=== PATIENT | female | born 1985 | race Caucasian/White ===

== ENCOUNTER → 2017-04-15 21:59 | Observation (INO) ==
[2017-04-15 21:20] LABS: Bilirubin,Urine Negative (Negative); Blood,Urine Negative (Negative); Clarity,Urine Cloudy (Clear); Color,Urine Yellow (Yellow); Glucose,Urine (UA) Normal (Normal); Ketones,Urine Negative (Negative); Leukocyte Esterase,Urine Negative (Negative); Nitrite,Urine Negative (Negative); Protein,Urine Trace mg/dL (Neg-Trace); Specific Gravity,Urine 1.028 (1.010-1.025); Urobilinogen,Urine Normal (Normal)
[2017-04-15 21:22] LABS: Hyaline Casts,Urine None Seen per lpf (None-Few); Squamous Epithelial Cell,Urine Many per lpf (None-Few)
[2017-04-15 21:31] LABS: Amorphous Sediment,Urine Few (Few); Bacteria,Urine Moderate per hpf (None-Few); Mucus,Urine Moderate (Few)
--- NOTE | 2017-04-15 21:50 | OB/GYN Progress Note ---
Date of Encounter: 04/15/17 Time of Encounter: 21:47 - Assessment and Plan (1) 30 weeks gestation of Current Visit: Yes Status: Acute (2) Encounter for suspected PROM, with rupture of membranes not found Current Visit: Yes Status: Acute Fern and Nitrazine negative. Vaginosis panel obtained. (3) Decreased movement Current Visit: Yes Status: Acute Pt did feel move while in triage. heart rate tracing appropriate for gestational age. Qualifiers: Fetus number: single or unspecified fetus Trimester: third trimester Qualified Code(s): O36.8130 - Decreased movements, third trimester, not applicable or unspecified (4) Pelvic pressure in Current Visit: Yes Status: Acute Cervix closed, thick and high. Discussed need for rest and hydration. discharged home with labor precautions. Pt verbalized understanding. Subjective - Subjective Interval history: 30+5 weeks gestation presents to triage with complaints of decreased movement, cramping and pelvic pressure, and occasional leaking of fluid. Patient states the cramping has been going on for a couple days is inconsistent and not in a regular pattern. Patient states she occasionally has decreased movement she does not feel the baby when lying so she usually checks movement after having a meal sitting in a recliner. Patient states on last check she did not get the required 8-10 movement. Denies vaginal bleeding. Patient also complains of pelvic pressure and pains that wraparound her hips down into vagina. Patient states leaking of fluid has been intermittent the last few days Antepartum ROS: loss of fluid, contractions, no vaginal bleeding, no movement normal Objective - Vital Signs Vital Signs: Intake and Output 04/15/17 04/15/17 04/15/17 07:59 15:59 23:59 Other: Weight 154.2 kg Patient Weight 04/15/17 23:59 Weight 154.2 kg - Exam FHR: auscultation normal FHR comments: Baseline: 135 Auscultation: bilateral: normal Abdomen: Present: normal appearance, soft, gravid Uterus: Present: normal Cervical dilation: Closed, thick, long - Labs Labs: Abnormal lab results Urine Clarity Cloudy (Clear) A 04/15/17 21:15 Ur Specific [place] 1.028 (1.010-1.025) H 04/15/17 21:15 Urine Microscopic WBC 3-5 per hpf (0-3) H 04/15/17 21:15 Ur Squamous Epith Cells Many per lpf (None-Few) H 04/15/17 21:15 Urine Bacteria Moderate per hpf (None-Few) H 04/15/17 21:15 Urine Mucus Moderate (Few) H 04/15/17 21:15
[2017-04-15 21:51] LABS: Amphetamine Screen,Urine Negative ng/mL (Cutoff=1000); Barbiturate Screen,Urine Negative ng/mL (Cutoff=200); Benzodiazepines Screen,Urine Negative ng/mL (Cutoff=200); Cannabinoid Screen,Urine Negative ng/mL (Cutoff = 50); Cocaine Screen,Urine Negative ng/mL (Cutoff= 300); Opiate Screen,Urine Negative ng/mL (Cutoff=300); Phencyclidine Screen,Urine Negative ng/mL (Cutoff=25)
[2017-04-15 22:35] LABS: Candida DNA Not Detected (Not Detect); Gardnerella DNA ***DETECTED*** (Not Detect); Trichomonas DNA Not Detected (Not Detect)
== END | disposition home or self-care (01) ==
LOC: 1NENULAB
PROVIDERS: ADMIT Advanced Practice Midwife; ATTEND Advanced Practice Midwife

== ENCOUNTER → 2017-04-28 13:10 | Observation (INO) ==
[2017-04-28 12:14] LABS: Basophils # 0.1 K/mcL (0.0-0.2); Basophils % 0.4 %; Eosinophils # 0.1 K/mcL (0.0-0.6); Immature Granulocytes % 2.3 % (0-4); Immature Platelets 5.3 % (1.1-6.1); Lymphocytes # 1.5 K/mcL (0.6-4.6); Lymphocytes % 10.8 %; Mean Corpuscular HGB Conc 32.3 g/dL (31.6-35.5); Mean Corpuscular Hemoglobin 26.8 pg (28.0-33.3); Mean Corpuscular Volume 83.1 fL (83.0-100.0); Mean Platelet Volume 10.3 fL (9.4-12.4); Monocytes # 0.7 K/mcL (0.0-1.3); Monocytes % 4.7 %; Neutrophils # 11.2 K/mcL (1.6-8.9); Platelet Count 252 K/mcL (140-400); Red Blood Count 3.73 M/mcL (3.82-4.97); Red Cell Distribution Width 14.8 % (11.5-14.5); Segmented Neutrophils % 80.8 %
[2017-04-28 12:24] LABS: Protein/Creatinine Ratio,Urine 0.19 mg/mg (0-0.20)
[2017-04-28 12:28] LABS: Alanine Aminotransferase 10 Units/L (0-55); Aspartate Amino Transferase 8 Units/L (5-34); BUN/Creatinine Ratio 17 (6-26); Blood Urea Nitrogen 10 mg/dL (7-20); Lactate Dehydrogenase 146 Units/L (159-327); Uric Acid 4.5 mg/dL (2.6-6.0); eGFR For African Americans > 60 (> 60); eGFR For Non-African Americans > 60 (> 60)
--- NOTE | 2017-04-28 12:44 | Discharge Summary ---
Date of Encounter: 04/28/17 Time of Encounter: 12:44 - Discharge Diagnosis (1) 34 weeks gestation of Priority: Primary Status: Acute Comments: admitted for PIH evaluation (2) Elevated BP without diagnosis of hypertension Priority: Secondary Status: Acute Comments: BP's within normal limits PIH labs WNL Discussed Pt with Dr. Castañeda Discharge home follow up with DR. Guerra as scheduled on . (3) NST (non-stress test) reactive on surveillance Priority: Secondary Status: Acute Comments: FHR baseline 150 bpm moderate variability +15x15 accels no decels noted. No contractions noted. - Discharge Medications Home Medications: Vit/Iron Fumarate/FA [ Tablet] 1 each PO DAILY 04/15/17 [ History] Allergies/Adverse Reactions: 3 Allergy/AdvReac Type Severity Reaction Status Date / Time No Known Allergies Allergy Unverified 04/15/17 21:08 Data Procedures and tests throughout hospitalization: Laboratory Tests 04/28/17 04/28/17 04/28/17 12:03 12:03 12:03 WBC 13.9 H RBC 3.73 L Hgb 10.0 L Hct 31.0 L MCV 83.1 MCH 26.8 L MCHC 32.3 RDW 14.8 H Plt Count 252 MPV 10.3 Immature Gran % 2.3 Seg Neutrophils % 80.8 Lymphocytes % 10.8 Monocytes % 4.7 Eosinophils % 1.0 Basophils % 0.4 Neutrophils # 11.2 H Lymphocytes # 1.5 Monocytes # 0.7 Eosinophils # 0.1 Basophils # 0.1 Immature Plt Fraction 5.3 BUN 10 Creatinine 0.59 Est GFR ( Amer) > 60 Est GFR (Non-Af Amer) > 60 BUN/Creatinine Ratio 17 Uric Acid 4.5 AST 8 ALT 10 Lactate Dehydrogenase 146 L Urine Creatinine 43 Protein/Creatinin Ratio 0.19 Urine Total Protein 8 Labs on day of discharge: Labs from last 24 hours 04/28/17 04/28/17 04/28/17 12:03 12:03 12:03 WBC 13.9 H RBC 3.73 L Hgb 10.0 L Hct 31.0 L MCV 83.1 MCH 26.8 L MCHC 32.3 RDW 14.8 H Plt Count 252 MPV 10.3 Immature Gran % 2.3 Seg Neutrophils % 80.8 Lymphocytes % 10.8 Monocytes % 4.7 Eosinophils % 1.0 Basophils % 0.4 Neutrophils # 11.2 H Lymphocytes # 1.5 Monocytes # 0.7 Eosinophils # 0.1 Basophils # 0.1 Immature Plt Fraction 5.3 BUN 10 Creatinine 0.59 Est GFR ( Amer) > 60 Est GFR (Non-Af Amer) > 60 BUN/Creatinine Ratio 17 Uric Acid 4.5 AST 8 ALT 10 Lactate Dehydrogenase 146 L Urine Creatinine 43 Protein/Creatinin Ratio 0.19 Urine Total Protein 8 Date of admission: 04/28/17 11:42 Primary care physician: PCP NONE Discharging clinician: Karen Mason Anticipated date of discharge: 04/28/17 - Patient Status Disposition: Home, Self-Care Condition: Good Functional capacity at discharge: independent ambulation - Discharge Instructions Follow Up With: NONE,PCP [Primary Care Provider] - Micheal Guerra MD [Partnered Physician] - - Diet and Activity Activity: increase activity as tolerated Diet: regular diet 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 Patient denies visual disturbances or epigastric pain. Patient has not taken anything to relieve headache. Patient reports +FM, denies contractions, LOF or VB. Time Attestation: Total time spent providing and/or coordinating discharge services: Time Spent: Less than 30 minutes Exam - Constitutional General appearance IM: A&O X 3, morbidly obese, pleasant, answers questions appropriately - Respiratory Respiratory exam: Present: CTAB - Cardiovascular Cardiovascular exam IM: Present: RRR, +S1, +S2 - Other Additional findings: FHR 150 bpm moderate variability +15x15 accels no decels noted. CAt. 1 tracing. No contractions noted. - VTE Reasons for not Prescribing Prophylaxis: Treatment not Indicated - Low risk for VTE
[2017-04-28 12:49] LABS: Amphetamine Screen,Urine Negative ng/mL (Cutoff=1000); Barbiturate Screen,Urine Negative ng/mL (Cutoff=200); Benzodiazepines Screen,Urine Negative ng/mL (Cutoff=200); Cannabinoid Screen,Urine Negative ng/mL (Cutoff = 50); Cocaine Screen,Urine Negative ng/mL (Cutoff= 300); Opiate Screen,Urine Negative ng/mL (Cutoff=300); Phencyclidine Screen,Urine Negative ng/mL (Cutoff=25)
== END | disposition home or self-care (01) ==
LOC: 1NENULAB
PROVIDERS: ADMIT Obstetrics & Gynecology; ATTEND Obstetrics & Gynecology

== ENCOUNTER 2017-06-12 05:31 | Inpatient (IN) ==
[2017-06-12] MEDS ORDERED: Naloxone 0.4 MG/ML INJ IVP PRN ×2 (06:11→08:39)
[2017-06-12] MEDS ORDERED: Metoclopramide 10 MG/2 ML VIAL IVP PRN ×2 (06:11→11:20)
[2017-06-12] MEDS ORDERED: Famotidine 20 MG/2 ML VIAL IVP PRN (06:11)
[2017-06-12] MEDS ORDERED: Ringers Solution, Lactated 1,000 ML IVC SCH (06:15)
[2017-06-12] MEDS ORDERED: Ringers Solution, Lactated 1,000 ML ONE ×2 (06:16→08:58)
[2017-06-12] MEDS ORDERED: ceFAZolin 3,000 MG in D5% in Water 100 ML IVPB ONE (06:25)
[2017-06-12 06:27] LABS: Hematocrit 31.1 % (35.3-44.9); Hemoglobin 10.2 g/dL (11.5-15.4); Immature Granulocytes % 1.6 % (0-4); Lymphocytes % 13.1 %; Mean Corpuscular HGB Conc 32.8 g/dL (31.6-35.5); Mean Corpuscular Hemoglobin 27.3 pg (28.0-33.3); Mean Corpuscular Volume 83.4 fL (83.0-100.0); Mean Platelet Volume 10.7 fL (9.4-12.4); Platelet Count 221 K/mcL (140-400); Red Blood Count 3.73 M/mcL (3.82-4.97); Red Cell Distribution Width 15.8 % (11.5-14.5); Segmented Neutrophils % 78.8 %
[2017-06-12 06:28] LABS: Basophils % 0.3 %; Eosinophils # 0.2 K/mcL (0.0-0.6); Eosinophils % 1.1 %; Lymphocytes # 1.8 K/mcL (0.6-4.6); Monocytes # 0.7 K/mcL (0.0-1.3); Monocytes % 5.1 %; Neutrophils # 10.6 K/mcL (1.6-8.9)
[2017-06-12 06:41] LABS: Amphetamine Screen,Urine Negative ng/mL (Cutoff=1000); Barbiturate Screen,Urine Negative ng/mL (Cutoff=200); Benzodiazepines Screen,Urine Negative ng/mL (Cutoff=200); Cannabinoid Screen,Urine Negative ng/mL (Cutoff = 50); Cocaine Screen,Urine Negative ng/mL (Cutoff= 300); Opiate Screen,Urine Negative ng/mL (Cutoff=300); Phencyclidine Screen,Urine Negative ng/mL (Cutoff=25)
--- NOTE | 2017-06-12 06:50 | OB/GYN History & Physical ---
Date of Encounter: 06/12/17 Time of Encounter: 06:50 Assessment and Plan (1) 39 weeks gestation of Current visit: Yes Status: Acute Admit to labor and delivery Prepare for section GBS negative History of Present Illness Chief complaint: Admission for C/S HPI: Ms. Blackwell is a 32 year old female 39 and 0 weeks gestation, presents for primary section for LGA . course complicated with maternal obesity, elevated 1 hour GTT, 3 hour GTT within normal limits, otherwise uncomplicated. Patient reports good movement, denies contractions, vaginal bleeding, or leaking of fluid. Labs: A+, rubella and varicella immune, GBS negative, all other serologies negative Past Med Surg Social Fam HX - Past Medical History Medical history: no medical history Psychiatric history: no psych history - Past Surgical History Surgical History: other - Social History Smoking Status: Never smoker Smokeless Tobacco Status: No Alcohol use: none Drug use: none - Family History Mother Living Status: Still Living Hx Family Endocrine Disorder: Yes (DM) Obstetrical History - Pregnancies : 1 Para: 0 Term: 0 : 0 Ab's: 0 Livin Medications and Allergies Vit/Iron Fumarate/FA [ Tablet] 1 each PO DAILY 04/15/17 [ History] Ferrous Sulfate [Iron] 325 mg PO BID 04/28/17 [History] 3 Allergy/AdvReac Type Severity Reaction Status Date / Time No Known Allergies Allergy Verified 06/12/17 06:27 Exam - Constitutional Constitutional: well developed, well nourished, no acute distress, morbidly obese - Neck Neck exam: full ROM - Lungs Respiratory exam: CTAB - Cardiovascular Cardiovascular exam: RRR - Abdomen Abdomen: Present: bowel sounds normal, gravid, non tender - Uterus Uterus exam: Present: normal size, normal contour Results Result Diagrams: 06/12/17 06:15 Abnormal lab results WBC 13.4 K/mcL (4.3-11.1) H 06/12/17 06:15 RBC 3.73 M/mcL (3.82-4.97) L 06/12/17 06:15 Hgb 10.2 g/dL (11.5-15.4) L 06/12/17 06:15 Hct 31.1 % (35.3-44.9) L 06/12/17 06:15 MCH 27.3 pg (28.0-33.3) L 06/12/17 06:15 RDW 15.8 % (11.5-14.5) H 06/12/17 06:15 Neutrophils # 10.6 K/mcL (1.6-8.9) H 06/12/17 06:15 All other labs normal. - VTE Reasons for not Prescribing Prophylaxis: Treatment not Indicated - Low risk for VTE
[2017-06-12] MEDS ORDERED: CeFAZolin Syr 3,000MG/30 ML 3,000 MG/30 ML SYRINGE IVPB ONE (07:00)
[2017-06-12] MEDS ORDERED: *HR* Morphine Sulfate/PF 5 MG/10 ML AMPUL ONE (07:28)
[2017-06-12] MEDS ORDERED: *HR* FentaNYL (PF) 100 MCG/2 ML VIAL ONE (07:29)
[2017-06-12] MEDS ORDERED: Acetaminophen IV 1,000 MG/100 ML INFUS..BTL IVPB ONE (07:31)
--- NOTE | 2017-06-12 07:35 | Anesthesia Evaluation PreOp ---
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 HX Other Medical History: Denies Any Significant HX Anesthesia History: No Prior Anesthetic Complications, Past Anesthesia ( Varicose Veins, IUD removal in OR) : Yes Alcohol Use: none Drug use: none Medications and Allergies Vit/Iron Fumarate/FA [ Tablet] 1 each PO DAILY 04/15/17 [ History] Ferrous Sulfate [Iron] 325 mg PO BID 04/28/17 [History] 3 Allergy/AdvReac Type Severity Reaction Status Date / Time No Known Allergies Allergy Verified 06/12/17 06:27 - Meds/Allergy Pre-op Review Medications Reviewed: Yes Allergies Reviewed: Yes Beta Blockers on Current Med List: No Anesthesia Results - Labs 06/12/17 06:15 Anesthesia Exam 138/78, 20, 98% Height: 1.7m Weight: 161.9kg NPO (# of Hours): >8hr Pain Scale: 0 Pain Scale Used: Numeric (1 - 10) - HEENT Pupil (Motor): Pupils equal Mallampati: III Teeth: Normal Oral Opening: Greater than 3 - 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
[2017-06-12] MEDS ORDERED: *HR* Oxytocin 10 UNIT/ML VIAL IM ONE ×2 (07:36→08:58)
[2017-06-12] MEDS ORDERED: Ondansetron 4 MG/2 ML VIAL ONE (07:38)
[2017-06-12] MEDS ORDERED: Ringers Solution, Lactated 2,000 ML ONE (08:08)
[2017-06-12] MEDS ORDERED: Ketamine *HR* 500 MG/10 ML MDV ONE (08:21)
[2017-06-12] MEDS ORDERED: Ondansetron 4 MG/2 ML VIAL IVP PRN ×2 (08:39→11:20)
[2017-06-12] MEDS ORDERED: *HR* HYDROmorphone (PF) 1 MG/ML SYRINGE IVP PRN ×2 (08:39→12:54)
--- NOTE | 2017-06-12 09:26 | OB/GYN Procedure Note ---
Section - Date of procedure: 06/12/17 Preop diagnosis: other (Macrosomia declines trial of labor) Post-op diagnosis: same Procedure: primary low transverse Surgeon: Micheal Guerra Estimated blood loss (cc): 800 Anesthesiologist: Sheri Reddy Assistant In Nursing: Shawn Carlos Anesthesia Type: Spinal section complications: none Disposition: PACU Specimens: Placenta - Infant (s) Infant A Infant Delivery Date: 06/12/17 Infant Delivery Time: 08:33 Presentation: vertex Gender: Female Pounds: 8 Ounces: 12 Gram Weight: 3.97 kg at 1 minute: 9 at 5 minutes: 9 Shoulder Dystocia: not encountered Specimens collected: cord blood Placenta: complete extraction Cord: nuchal cord - Narrative Narrative: Patient was taken to the operating room. After satisfactory anesthesia was achieved, patient placed in supine position Robb catheter inserted and prepped and draped in usual manner. After appropriate timeout, the abdomen was entered standard Maylard incision. The Rivas retractor was placed. The peritoneum overlying the lower uterine segment was incised in U-shaped fashion. Uterine cavity was entered sharply and extended laterally. Fluid was clear. With fundal pressure the head was delivered. Infant suctioned upon delivery of the head. Nuchal cord 2 was relieved. The was delivered and the umbilical cord double clamped cut and the infant was handed to nurse staff further evaluation the placenta was removed. Uterus closed in single layer using 0 Monocryl. After hemostasis, the abdomen was closed in a fashion using 0 Vicryl to fascia, 2-0 Vicryl in the subcutaneous, and 3-0 Monocryl on the skin. Sterile dressing was applied. Patient did well and was taken to recovery room in satisfactory condition. Counts were correct.
--- NOTE | 2017-06-12 10:57 | Anesthesia Evaluation Post Op ---
Date of Encounter: 06/12/17 Time of Encounter: 10:50 - Lungs Lungs: Clear Ascult./Percussion - Airway Airway: Non-obstructed - Cardiovascular Regular Rate - Mental Status Mental Status: Alert & Oriented, Answers Appropriately - Pain Pain Scale: 5 Pain Scale used: Numeric (1 - 10) - Nausea Vomiting Nausea Vomiting: Not Present - Hydration Hydration: NPO, Robb catheter - Discharge PostOp Status: Transfer Patient to floor Attestation: MOEx4. Patient alert and communicative. Meets criteria for floor transfer.
[2017-06-12] MEDS ORDERED: Sennosides 8.6 MG TABLET PO PRN (11:20)
[2017-06-12] MEDS ORDERED: Oxytocin 20 units/ LR 1000 mL 20 UNIT/1,000 ML BAG IVC SCH (11:20)
[2017-06-12] MEDS ORDERED: *HR* Morphine 2 MG/ML SYRINGE IVP PRN (12:54)
[2017-06-12] MEDS: Ibuprofen 600 MG TABLET PO PRN (21:03)
[2017-06-13 05:42] LABS: Basophils % 0.2 %; Eosinophils # 0.1 K/mcL (0.0-0.6); Eosinophils % 1.1 %; Hematocrit 26.7 % (35.3-44.9); Immature Granulocytes % 1.5 % (0-4); Lymphocytes # 1.6 K/mcL (0.6-4.6); Lymphocytes % 12.3 %; Mean Corpuscular HGB Conc 32.2 g/dL (31.6-35.5); Mean Corpuscular Hemoglobin 27.2 pg (28.0-33.3); Mean Corpuscular Volume 84.5 fL (83.0-100.0); Mean Platelet Volume 10.3 fL (9.4-12.4); Monocytes # 0.7 K/mcL (0.0-1.3); Monocytes % 5.2 %; Neutrophils # 10.4 K/mcL (1.6-8.9); Platelet Count 156 K/mcL (140-400); Red Blood Count 3.16 M/mcL (3.82-4.97); Red Cell Distribution Width 15.9 % (11.5-14.5); Segmented Neutrophils % 79.7 %
[2017-06-13 05:43] LABS: Hemoglobin 8.6 g/dL (11.5-15.4)
[2017-06-13 05:56] LABS: Alanine Aminotransferase 10 Units/L (0-55); Aspartate Amino Transferase 12 Units/L (5-34); BUN/Creatinine Ratio 18 (6-26); Blood Urea Nitrogen 11 mg/dL (7-20); Lactate Dehydrogenase 160 Units/L (159-327); Uric Acid 6.8 mg/dL (2.6-6.0); eGFR For African Americans > 60 (> 60); eGFR For Non-African Americans > 60 (> 60)
[2017-06-13] MEDS: Ibuprofen 600 MG TABLET PO PRN ×2 (06:20→15:32)
[2017-06-13] MEDS ORDERED: NON-FORMULARY MEDICATION 1 EACH EACH (Prenatal Vit/Iron Fumarate/Fa [Prenatal Tablet] 1 EA PO SCH (09:00)
--- NOTE | 2017-06-13 09:28 | OB/GYN Progress Note ---
Date of Encounter: 06/13/17 Time of Encounter: 09:26 - Assessment and Plan (1) S/P section Current Visit: Yes Status: Acute Continue routine postop/ care Encourage early ambulation and water intake Anticipate discharge home tomorrow. (2) Anemia complicating the puerperium Current Visit: Yes Status: Acute VSS; Asymptomatic Continue ferrous sulfate; discharge home with ferrous sulfate po Subjective - Subjective Principal diagnosis: Primary C/S for suspected macrosomia Interval history: S/P Primary C/S Day 1 Pain is well controlled; feeling bloated - encouraged water intake and ambulation Lochia is light and without clots Tolerating regular diet Has yet to void; urinary catheter was removed at 0600. States she is feeling the urge to void Patient is , denies problems with breast feeding Anticipate discharge home tomorrow. Patient reports: appetite normal, voiding normally, pain well controlled, ambulating normally [place]: doing well, nursing well Objective - Vital Signs Latest vital signs: Vital Signs Temp Pulse Pulse Resp BP Pulse Ox 06/13/17 07:46 97.9 F 93 16 136/82 96 06/13/17 05:58 98.2 F 87 16 131/74 97 06/13/17 00:13 168/65 06/13/17 00:09 98.0 F 81 16 151/75 95 06/12/17 21:00 130/76 06/12/17 20:23 98.2 F 86 16 168/72 97 06/12/17 14:30 98.0 F 87 16 121/71 06/12/17 13:30 98.0 F 87 16 121/71 06/12/17 12:30 97.7 F 76 70 16 123/63 06/12/17 12:00 97.9 F 77 16 126/70 06/12/17 11:30 97.4 F L 87 16 136/72 06/12/17 11:25 16 Intake and Output 06/12/17 06/13/17 06/13/17 23:59 07:59 15:59 Intake Total 500 / 500 0 / 0 Output Total 200 / 200 400 / 400 Balance 300 / 300 -400 / -400 Intake: Oral 500 / 500 0 / 0 Output: Catheter 200 / 200 400 / 400 Other: Meal Dinner Percent of Meal Consumed 95% Stool Characteristics Normal for Patient - Exam Lungs: bilateral: normal Chest: Normal S1, Normal S2 Extremities: Present: normal, edema (2+ BLE; Knee-high compression stockings on) Abdomen: Present: normal appearance, soft. Absent: gravid, tenderness Incision: Present: normal, dry, intact (JOAN dressing on and working) Uterus: Present: normal, firm Fundal Height: 0 (@U) - Labs Labs: Laboratory Results - last 24 hr 06/13/17 06/13/17 05:32 05:32 WBC 13.0 H RBC 3.16 L Hgb 8.6 L D Hct 26.7 L MCV 84.5 MCH 27.2 L MCHC 32.2 RDW 15.9 H Plt Count 156 MPV 10.3 Immature Gran % 1.5 Seg Neutrophils % 79.7 Lymphocytes % 12.3 Monocytes % 5.2 Eosinophils % 1.1 Basophils % 0.2 Neutrophils # 10.4 H Lymphocytes # 1.6 Monocytes # 0.7 Eosinophils # 0.1 Basophils # 0.0 BUN 11 Creatinine 0.60 Est GFR ( Amer) > 60 Est GFR (Non-Af Amer) > 60 BUN/Creatinine Ratio 18 Uric Acid 6.8 H AST 12 ALT 10 Lactate Dehydrogenase 160
[2017-06-13] MEDS: Prenatal Vit/FA 1 EACH TABLET PO SCH (10:19)
[2017-06-13] MEDS: Simethicone 80 MG TAB.CHEW PO PRN ×3 (10:21→20:05)
[2017-06-13] MEDS: *HR* OxyCODONE/APAP 5/325 TABLET PO PRN ×2 (11:46→21:35)
[2017-06-14] MEDS: Ibuprofen 600 MG TABLET PO PRN (07:00)
[2017-06-14 07:42] LABS: Basophils % 0.2 %; Eosinophils # 0.1 K/mcL (0.0-0.6); Hematocrit 26.5 % (35.3-44.9); Hemoglobin 8.4 g/dL (11.5-15.4); Immature Granulocytes % 1.7 % (0-4); Lymphocytes # 1.6 K/mcL (0.6-4.6); Lymphocytes % 12.7 %; Mean Corpuscular HGB Conc 31.7 g/dL (31.6-35.5); Mean Corpuscular Volume 85.2 fL (83.0-100.0); Mean Platelet Volume 10.5 fL (9.4-12.4); Monocytes # 0.6 K/mcL (0.0-1.3); Monocytes % 4.8 %; Platelet Count 202 K/mcL (140-400); Red Blood Count 3.11 M/mcL (3.82-4.97); Red Cell Distribution Width 15.9 % (11.5-14.5); Segmented Neutrophils % 79.6 %
[2017-06-14 07:53] LABS: Alanine Aminotransferase 11 Units/L (0-55); Aspartate Amino Transferase 11 Units/L (5-34); BUN/Creatinine Ratio 12 (6-26); Blood Urea Nitrogen 8 mg/dL (7-20); Lactate Dehydrogenase 176 Units/L (159-327); Uric Acid 7.2 mg/dL (2.6-6.0); eGFR For African Americans > 60 (> 60); eGFR For Non-African Americans > 60 (> 60)
--- NOTE | 2017-06-14 08:03 | Discharge Summary ---
Date of Encounter: 06/14/17 Time of Encounter: 08:00 - Discharge Diagnosis (1) S/P section Priority: Primary Status: Acute (2) hypertension Priority: Secondary Status: Acute (3) Blood loss anemia Priority: Secondary Status: Acute - Discharge Medications Prescriptions: OxyCODONE/APAP 5/325 [Percocet 5/325 MG] 1 each PO Q4HR PRN #42 tablet PRN Reason: Moderate pain 4-6 Ibuprofen [Motrin] 600 mg PO Q6HR PRN #30 tablet PRN Reason: Cramping Ondansetron [Zofran] 4 mg PO Q6HR PRN #30 vial PRN Reason: Nausea And Vomiting Labetalol [Trandate] 200 mg PO BID #60 tablet Home Medications: Vit/Iron Fumarate/FA [ Tablet] 1 each PO DAILY 04/15/17 [ History] Ferrous Sulfate [Iron] 325 mg PO BID 04/28/17 [History] Ibuprofen [Motrin] 600 mg PO Q6HR PRN #30 tablet 06/14/17 [Rx] Labetalol [Trandate] 200 mg PO BID #60 tablet 06/14/17 [Rx] Ondansetron [Zofran] 4 mg PO Q6HR PRN #30 vial 06/14/17 [Rx] OxyCODONE/APAP 5/325 [Percocet 5/325 MG] 1 each PO Q4HR PRN #42 tablet 06/14/17 [Rx] Allergies/Adverse Reactions: 3 Allergy/AdvReac Type Severity Reaction Status Date / Time No Known Allergies Allergy Verified 06/12/17 06:27 Data Procedures and tests throughout hospitalization: Laboratory Tests 06/12/17 06/12/17 06/13/17 06:15 06:15 05:32 WBC 13.4 H 13.0 H RBC 3.73 L 3.16 L Hgb 10.2 L 8.6 L D Hct 31.1 L 26.7 L MCV 83.4 84.5 MCH 27.3 L 27.2 L MCHC 32.8 32.2 RDW 15.8 H 15.9 H Plt Count 221 156 MPV 10.7 10.3 Immature Gran % 1.6 1.5 Seg Neutrophils % 78.8 79.7 Lymphocytes % 13.1 12.3 Monocytes % 5.1 5.2 Eosinophils % 1.1 1.1 Basophils % 0.3 0.2 Neutrophils # 10.6 H 10.4 H Lymphocytes # 1.8 1.6 Monocytes # 0.7 0.7 Eosinophils # 0.2 0.1 Basophils # 0.0 0.0 BUN Creatinine Est GFR ( Amer) Est GFR (Non-Af Amer) BUN/Creatinine Ratio Uric Acid AST ALT Lactate Dehydrogenase Urine Opiates Screen Negative Ur Barbiturates Screen Negative Ur Phencyclidine Scrn Negative Ur Amphetamines Screen Negative U Benzodiazepines Scrn Negative Urine Cocaine Screen Negative U Marijuana (THC) Screen Negative 06/13/17 06/14/17 06/14/17 05:32 07:00 07:00 WBC 12.5 H RBC 3.11 L Hgb 8.4 L Hct 26.5 L MCV 85.2 MCH 27.0 L MCHC 31.7 RDW 15.9 H Plt Count 202 MPV 10.5 Immature Gran % 1.7 Seg Neutrophils % 79.6 Lymphocytes % 12.7 Monocytes % 4.8 Eosinophils % 1.0 Basophils % 0.2 Neutrophils # 10.0 H Lymphocytes # 1.6 Monocytes # 0.6 Eosinophils # 0.1 Basophils # 0.0 BUN 11 8 Creatinine 0.60 0.67 Est GFR ( Amer) > 60 > 60 Est GFR (Non-Af Amer) > 60 > 60 BUN/Creatinine Ratio 18 12 Uric Acid 6.8 H 7.2 H AST 12 11 ALT 10 11 Lactate Dehydrogenase 160 176 Urine Opiates Screen Ur Barbiturates Screen Ur Phencyclidine Scrn Ur Amphetamines Screen U Benzodiazepines Scrn Urine Cocaine Screen U Marijuana (THC) Screen Labs on day of discharge: Labs from last 24 hours 06/14/17 06/14/17 07:00 07:00 WBC 12.5 H RBC 3.11 L Hgb 8.4 L Hct 26.5 L MCV 85.2 MCH 27.0 L MCHC 31.7 RDW 15.9 H Plt Count 202 MPV 10.5 Immature Gran % 1.7 Seg Neutrophils % 79.6 Lymphocytes % 12.7 Monocytes % 4.8 Eosinophils % 1.0 Basophils % 0.2 Neutrophils # 10.0 H Lymphocytes # 1.6 Monocytes # 0.6 Eosinophils # 0.1 Basophils # 0.0 BUN 8 Creatinine 0.67 Est GFR ( Amer) > 60 Est GFR (Non-Af Amer) > 60 BUN/Creatinine Ratio 12 Uric Acid 7.2 H AST 11 ALT 11 Lactate Dehydrogenase 176 Date of admission: 06/12/17 05:31 Primary care physician: PCP NONE Discharging clinician: Rajendra Buchanan Anticipated date of discharge: 06/14/18 - Patient Status Disposition: Home, Self-Care Condition: Good Functional capacity at discharge: independent ambulation Overall status at discharge: patient is progressing back to baseline - Discharge Instructions Follow Up With: NONE,PCP [Primary Care Provider] - Micheal Guerra MD [Partnered Physician] - - Diet and Activity Activity: increase activity as tolerated Diet: advance to your usual diet Hospital Course Reason for admission: section Delivery: section Episiotomy: none Laceration: none complications: none Discharge diagnosis: IUP at term delivered baby: female Hospital course: Patient is a 32-year-old who presented for repeat section. Patient underwent surgery without any complications blood pressure did become elevated after the delivery. Patient was observed on hospital day #1 we did start some labetalol 200 mg twice a day which did stabilize blood pressure. Patient's hemoglobin did drop but remained stable. She labs within normal limits. Patient was discharged home on hospital day #2 with prescription for labetalol 200 mg twice a day Percocet 5 mg #42 and Motrin 600 mg every 8 hours as needed for pain patient will also be given this prescription for Zofran for nausea vomiting and she is in 2 weeks. Patient's condition at time of discharge was stable. Time Attestation: Total time spent providing and/or coordinating discharge services: - VTE Reasons for not Prescribing Prophylaxis: Treatment not Indicated - Low risk for VTE Documentation of Mechanical Device: Graduated compression elastic hosiery Exam - Constitutional Vitals: Temp Pulse Resp BP Pulse Ox 98.2 F 72 16 112/66 98 06/13/17 19:50 06/13/17 20:05 06/13/17 19:50 06/14/17 02:30 06/13/17 19:50 General appearance IM: A&O X 3 - Respiratory Respiratory exam: Present: CTAB - Cardiovascular Cardiovascular exam IM: Present: RRR - GI/Abdominal GI/Abdominal exam IM: normal bowel sounds Incision: normal, intact, dressed - Rectal Rectal exam: deferred - Uterus Position: 2 Fingers Below Umbilicus
[2017-06-14 08:09] VITALS: BP 124/71
[2017-06-14] MEDS: Prenatal Vit/FA 1 EACH TABLET PO SCH (08:21)
[2017-06-14] MEDS: Simethicone 80 MG TAB.CHEW PO PRN (08:21)
[2017-06-14] MEDS: *HR* OxyCODONE/APAP 5/325 TABLET PO PRN (11:15)
== END 2017-06-14 11:35 | disposition home or self-care (01) | DRG 766 ==
LOC: 1NENULAB 05:31 → 1NENUOBS 11:19
PROVIDERS: ADMIT Obstetrics & Gynecology; ATTEND Obstetrics & Gynecology

== ENCOUNTER → 2019-06-26 18:40 | Observation (INO) ==
[2019-06-26 18:20] LABS: Amphetamine Screen,Urine Negative ng/mL (Cutoff=1000); Barbiturate Screen,Urine Negative ng/mL (Cutoff=200); Benzodiazepines Screen,Urine Negative ng/mL (Cutoff=200); Cannabinoid Screen,Urine Negative ng/mL (Cutoff = 50); Cocaine Screen,Urine Negative ng/mL (Cutoff= 300); Opiate Screen,Urine Negative ng/mL (Cutoff=300); Phencyclidine Screen,Urine Negative ng/mL (Cutoff=25)
== END | disposition home or self-care (01) ==
LOC: 1NENULAB
PROVIDERS: ADMIT Advanced Practice Midwife; ATTEND Advanced Practice Midwife

== ENCOUNTER → 2019-08-25 01:04 | Observation (INO) ==
[2019-08-24 22:28] LABS: Amphetamine Screen,Urine Negative ng/mL (Cutoff=1000); Barbiturate Screen,Urine Negative ng/mL (Cutoff=200); Benzodiazepines Screen,Urine Negative ng/mL (Cutoff=200); Cannabinoid Screen,Urine Negative ng/mL (Cutoff = 50); Cocaine Screen,Urine Negative ng/mL (Cutoff= 300); Opiate Screen,Urine Negative ng/mL (Cutoff=300); Phencyclidine Screen,Urine Negative ng/mL (Cutoff=25); Protein/Creatinine Ratio,Urine 0.3 mg/mg (0.00-0.20)
[2019-08-24 23:07] LABS: Basophils % 0.3 %; Eosinophils # 0.3 K/mcL (0.0-0.6); Eosinophils % 2.5 %; Hematocrit 30.5 % (35.3-44.9); Hemoglobin 9.8 g/dL (11.5-15.4); Immature Granulocytes % 0.6 % (0-4); Lymphocytes % 17.1 %; Mean Corpuscular HGB Conc 32.1 g/dL (31.6-35.5); Mean Corpuscular Hemoglobin 27.7 pg (28.0-33.3); Mean Corpuscular Volume 86.2 fL (83.0-100.0); Mean Platelet Volume 10.5 fL (9.4-12.4); Monocytes # 0.6 K/mcL (0.0-1.3); Monocytes % 4.9 %; Neutrophils # 8.6 K/mcL (1.6-8.9); Platelet Count 229 K/mcL (140-400); Red Blood Count 3.54 M/mcL (3.82-4.97); Red Cell Distribution Width 15.1 % (11.5-14.5); Segmented Neutrophils % 74.6 %; White Blood Count 11.5 K/mcL (4.3-11.1)
[2019-08-24 23:28] LABS: Alanine Aminotransferase 11 Units/L (7-52); Aspartate Amino Transferase 8 Units/L (13-39); BUN/Creatinine Ratio 19 (6-26); Blood Urea Nitrogen 10 mg/dL (6-20); Lactate Dehydrogenase 99 Units/L (140-271); Uric Acid 5.1 mg/dL (2.3-7.6); eGFR For African Americans > 60 (> 60); eGFR For Non-African Americans > 60 (> 60)
== END | disposition home or self-care (01) ==
LOC: 1NENULAB
PROVIDERS: ADMIT Registered Nurse; ATTEND Registered Nurse

== ENCOUNTER → 2019-08-31 18:59 | Observation (INO) ==
[2019-08-31 18:41] LABS: Amphetamine Screen,Urine Negative ng/mL (Cutoff=1000); Barbiturate Screen,Urine Negative ng/mL (Cutoff=200); Benzodiazepines Screen,Urine Negative ng/mL (Cutoff=200); Cannabinoid Screen,Urine Negative ng/mL (Cutoff = 50); Cocaine Screen,Urine Negative ng/mL (Cutoff= 300); Opiate Screen,Urine Negative ng/mL (Cutoff=300); Phencyclidine Screen,Urine Negative ng/mL (Cutoff=25)
[2019-08-31 18:42] LABS: Bilirubin,Urine Negative (Negative); Blood,Urine Negative (Negative); Clarity,Urine Clear (Clear); Color,Urine Dark Yellow (Yellow); Glucose,Urine (UA) Normal (Normal); Ketones,Urine 15 mg/dL (Negative); Leukocyte Esterase,Urine Negative (Negative); Nitrite,Urine Negative (Negative); PH,Urine 6.5 pH Units (5.0-8.0); Protein,Urine 30 mg/dL (Neg-Trace); Specific Gravity,Urine 1.027 (1.010-1.025); Urobilinogen,Urine Normal (Normal)
[2019-08-31 18:46] LABS: Bacteria,Urine Moderate per hpf (None-Few); Hyaline Casts,Urine Few per lpf (None-Few); Squamous Epithelial Cell,Urine Many per lpf (None-Few)
[~2019-08-31 18:59] MED LIST: Ondansetron ODT 4 MG TAB.RAPDIS SL PRN
== END | disposition home or self-care (01) ==
LOC: 1NENULAB
PROVIDERS: ADMIT Registered Nurse; ATTEND Registered Nurse

== ENCOUNTER 2019-09-02 17:19 | Inpatient (IN) ==
[2019-09-02 12:53] LABS: Amphetamine Screen,Urine Negative ng/mL (Cutoff=1000); Barbiturate Screen,Urine Negative ng/mL (Cutoff=200); Benzodiazepines Screen,Urine Negative ng/mL (Cutoff=200); Cannabinoid Screen,Urine Negative ng/mL (Cutoff = 50); Cocaine Screen,Urine Negative ng/mL (Cutoff= 300); Opiate Screen,Urine Negative ng/mL (Cutoff=300); Phencyclidine Screen,Urine Negative ng/mL (Cutoff=25)
[2019-09-02 13:06] LABS: Basophils % 0.1 %; Eosinophils # 0.3 K/mcL (0.0-0.6); Eosinophils % 2.8 %; Hematocrit 31.3 % (35.3-44.9); Hemoglobin 10.6 g/dL (11.5-15.4); Immature Granulocytes % 0.7 % (0-4); Lymphocytes # 1.2 K/mcL (0.6-4.6); Lymphocytes % 10.1 %; Mean Corpuscular HGB Conc 33.9 g/dL (31.6-35.5); Mean Corpuscular Hemoglobin 27.7 pg (28.0-33.3); Mean Corpuscular Volume 81.9 fL (83.0-100.0); Mean Platelet Volume 10.5 fL (9.4-12.4); Monocytes # 0.5 K/mcL (0.0-1.3); Platelet Count 248 K/mcL (140-400); Red Blood Count 3.82 M/mcL (3.82-4.97); Red Cell Distribution Width 15.6 % (11.5-14.5); Segmented Neutrophils % 82.3 %; White Blood Count 12.1 K/mcL (4.3-11.1)
[2019-09-02 13:15] LABS: Protein/Creatinine Ratio,Urine 0.2 mg/mg (0.00-0.20)
[2019-09-02 13:26] LABS: Alanine Aminotransferase 11 Units/L (7-52); Aspartate Amino Transferase 10 Units/L (13-39); BUN/Creatinine Ratio 17 (6-26); Blood Urea Nitrogen 9 mg/dL (6-20); Lactate Dehydrogenase 105 Units/L (140-271); Uric Acid 6.2 mg/dL (2.3-7.6); eGFR For African Americans > 60 (> 60); eGFR For Non-African Americans > 60 (> 60)
[~2019-09-02 17:19] MED LIST changes: +*HR* Nalbuphine 10 MG/ML AMPUL IV PRN; +*HR* Promethazine 25 MG/ML VIAL IVP PRN; +CeFAZolin Syr 3,000MG/30 ML 3,000 MG/30 ML SYRINGE IVPB ONE; +Famotidine 20 MG/2 ML VIAL IVP ONE; +Metoclopramide 10 MG/2 ML VIAL IVP ONE; +NIFEdipine 10 MG CAPSULE PO ONE; -Ondansetron ODT 4 MG TAB.RAPDIS SL PRN; +Oxytocin 20 units/ LR 1000 mL 20 UNIT/1,000 ML BAG IVC ONE; +Ringers Solution, Lactated 1,000 ML IVC ONE; +Ringers Solution, Lactated 1,000 ML ONE
[2019-09-02] MEDS ORDERED: Oxytocin 20 units/ LR 1000 mL 20 UNIT/1,000 ML BAG IVC SCH (17:30)
[2019-09-02] MEDS ORDERED: *HR* FentaNYL (PF) 100 MCG/2 ML VIAL ONE (17:48)
[2019-09-02] MEDS ORDERED: *HR* Oxytocin 10 UNIT/ML VIAL IM ONE ×2 (17:48→18:45)
[2019-09-02] MEDS ORDERED: *HR* Morphine Sulfate/PF 10 MG/10 ML AMPUL ONE (17:48)
[2019-09-02] MEDS ORDERED: Acetaminophen IV 1,000 MG/100 ML INFUS..BTL IVPB ONE (19:00)
[2019-09-02] MEDS ORDERED: Ondansetron 4 MG/2 ML VIAL IVP PRN ×2 (19:00→21:56)
[2019-09-02] MEDS ORDERED: *HR* HYDROmorphone (PF) 1 MG/ML SYRINGE IVP PRN (19:00)
[2019-09-02] MEDS ORDERED: Rho Immune Globulin 1,500 UNIT SYRINGE IM ONE (21:56)
[2019-09-02] MEDS ORDERED: Acetaminophen 325 MG TABLET PO PRN (21:56)
[2019-09-02] MEDS ORDERED: Metoclopramide 10 MG/2 ML VIAL IVP PRN (21:56)
[2019-09-02] MEDS ORDERED: Sennosides 8.6 MG TABLET PO PRN (21:56)
[2019-09-03] MEDS: *HR* OxyCODONE/APAP 5/325 TABLET PO PRN ×4 (00:08→21:45)
[2019-09-03] MEDS: Oxytocin 20 units/ LR 1000 mL 20 UNIT/1,000 ML BAG IVC SCH ×3 (01:21→14:29)
[2019-09-03] MEDS: Simethicone 80 MG TAB.CHEW PO PRN ×2 (01:21→10:09)
[2019-09-03] MEDS: Ibuprofen 600 MG TABLET PO PRN ×2 (01:21→08:24)
[2019-09-03] MEDS: ceFAZolin 2,000 MG in Water for inj. (sterile) 10 ML IVP SCH ×3 (01:22→18:15)
[2019-09-03] MEDS: Prenatal Vit/FA 1 EACH TABLET PO SCH (08:24)
[2019-09-03] MEDS: Venlafaxine XR (24 HR) 150 MG CAP.ER.24H PO SCH (10:04)
[2019-09-03] MEDS: Levothyroxine 25 MCG TABLET PO SCH (10:04)
[2019-09-03 11:20] LABS: Basophils % 0.2 %; Eosinophils # 0.6 K/mcL (0.0-0.6); Eosinophils % 4.8 %; Immature Granulocytes % 0.7 % (0-4); Lymphocytes # 1.2 K/mcL (0.6-4.6); Lymphocytes % 9.7 %; Mean Corpuscular HGB Conc 32.3 g/dL (31.6-35.5); Mean Corpuscular Hemoglobin 27.5 pg (28.0-33.3); Mean Corpuscular Volume 85.2 fL (83.0-100.0); Mean Platelet Volume 10.9 fL (9.4-12.4); Monocytes # 0.6 K/mcL (0.0-1.3); Monocytes % 4.7 %; Neutrophils # 9.9 K/mcL (1.6-8.9); Platelet Count 223 K/mcL (140-400); Red Blood Count 3.64 M/mcL (3.82-4.97); Red Cell Distribution Width 15.7 % (11.5-14.5); Segmented Neutrophils % 79.9 %; White Blood Count 12.4 K/mcL (4.3-11.1)
[2019-09-04] MEDS: Simethicone 80 MG TAB.CHEW PO PRN ×2 (00:35→07:39)
[2019-09-04] MEDS: Ibuprofen 600 MG TABLET PO PRN (00:35)
[2019-09-04] MEDS: *HR* OxyCODONE/APAP 5/325 TABLET PO PRN ×2 (02:32→07:39)
[2019-09-04] MEDS: Levothyroxine 25 MCG TABLET PO SCH (07:39)
[2019-09-04] MEDS: Prenatal Vit/FA 1 EACH TABLET PO SCH (07:40)
[2019-09-04] MEDS: Venlafaxine XR (24 HR) 150 MG CAP.ER.24H PO SCH (07:40)
[2019-09-04 08:00] VITALS: BP 131/78
== END 2019-09-04 10:24 | disposition home or self-care (01) | DRG 539 ==
LOC: 1NENULAB → 1NENUOBS 21:54
PROVIDERS: ADMIT Advanced Practice Midwife; ATTEND Advanced Practice Midwife